=== PATIENT | male | born 2000 | race Two or more races ===

== ENCOUNTER 2022-08-29 22:19 | Emergency (ER) | payer BC, MEDICAID ==
[2022-08-29] MEDS ORDERED: Erythromycin Base 0.5% Ophth Oint 1 GM Tube EYELF ONE (23:12)
== END 2022-08-29 23:27 | disposition home or self-care (01) ==
LOC: JP.ED 22:19
DX: J06.9 Acute upper respiratory infection, unspecified (principal); H10.32 Unspecified acute conjunctivitis, left eye; H69.83 Other specified disorders of Eustachian tube, bilateral; Z79.899 Other long term (current) drug therapy
CPT/HCPCS: 99282; A9270-GY

== ENCOUNTER 2025-01-09 19:34 | Emergency (ER) | payer MEDICARE, MEDICAID ==
[2025-01-09] MEDS: Acetaminophen/HYDROcodone 325-5 MG Tab PO ONE (21:28)
== END 2025-01-09 22:49 | disposition home or self-care (01) ==
LOC: JP.ED 19:34
DX: S82.832A Other fracture of upper and lower end of left fibula, initial encounter for closed fracture (principal); Z79.899 Other long term (current) drug therapy; X50.0XXA Overexertion from strenuous movement or load, initial encounter; Y93.89 Activity, other specified
CPT/HCPCS: 73610; 99283; A9270